=== PATIENT | male | born 1950 | race Caucasian/White ===

== ENCOUNTER 2021-05-06 14:05 | Inpatient (IN) | payer MEDICARE, OTHER ==
[~2021-05-06] VITALS: Ht 182.9 cm; Wt 92.9 kg
[~2021-05-06 14:05] MED LIST: ASPIRIN EC325 MG PO; BUPROPION HCL150 M2 PO; COLACE100 MG PO; GABAPENTIN300 MG PO; LISINOPRIL10 MG PO; NORCO 5-325 TA1 EACH PO; VALTREX1000 MG PO; WELLBUTRIN XL150 MG PO; WELLBUTRIN XL300 MG PO
--- NOTE | 2021-05-06 16:57 | EKG ---
[facility] [address] [facility] [place] [address] Signed Normal sinus rhythm Normal ECG When compared with ECG of 30-JUL-2016 14:16, Nonspecific T wave abnormality no longer evident in Inferior leads Confirmed by SHERIDAN POWERS MD ([id number]) on 05/06/2021 4:56:51 PM Electronically Signed By: SHERIDAN POWERS MD 05/06/21 1657 PATIENT NAME: ESTEFANIA JAY Electrocardiogram DATE OF : 48 PHYSICIAN: SHERIDAN POWERS MD REPORT #: [id number] REPORT IS CONFIDENTIAL AND NOT TO BE RELEASED WITHOUT AUTHORIZATION
--- NOTE | 2021-05-06 17:03 | NUR ---
PT ARRIVED TO FLOOR VIA STRETCHER. 3 PERSON ASSIST SLIDE TO BED. PT WITH NO PAIN UNLESS MOVING. REPORTS RESTING PAIN AT 0/10. LR WITH STRAIGHT TUBING STARTED AND PRE SURGICAL WIPE DOWN COMPLETED. VITALS TAKEN AND STABLE. PRE-OP CHECK LIST DONE.
--- NOTE | 2021-05-06 17:30 | NUR ---
PT OFF FLOOR TO SURGERY.
--- NOTE | 2021-05-06 18:58 | NUR ---
05/06/21 Krystle Phelps-PT ARRIVES TO PACU ON 6 L VIA MASK AND IS RESPONSIVE TO QUESTIONS AND ANSWERS APPROPRIATELY. PT POST-OP RIGHT HIP PINNING AND DRESSING INTACT. SPINAL AT L2 AND PT VERBALIZES NO PAIN/NAUSEA. 185-MONISHA ORIENTATION AND MOBILITY SPECIALIST AT BEDSIDE TO PLACE POST-OP BLOCKS. PT DENIES PAIN/NAUSEA AT THIS TIME. REPORT AND PT HANDOFF GIVEN TO MARCEL ANDRE.
--- NOTE | 2021-05-06 20:31 | NUR ---
Patient awake in bed, alert and oriented, respirations even and non labored. Patient had spinal, Patient reports he has full sensation to left and right lower legs. CMS intact. Right hip dressing CDI. Patient denies pain. Per reports from percussion instructor, patient also had a local block to right hip. Patient's vital signs are stable/afebrile. Cpox intact, sp02 95% on room air.
--- NOTE | 2021-05-06 21:27 | NUR ---
Patient resting in bed, eyes closed, respirations even and non labored. Patient has no distress. CPOX intact, sp02 98% on room air. CMS intact. Scd's intact and working appropriately. Right hip dressing CDI. Close to RN station for monitoring. Bed alarm in place.
--- NOTE | 2021-05-06 23:11 | NUR ---
Patient resting in bed, eyes closed, respirations even and non labored. Patient has no distress noted. Right hip dressing unchanged; CDI. SCD's/abraham hose intact. CMS intact. Dressing to right hip area, pt tolerating well. Patient has no distress. Bed alarm intact.
--- NOTE | 2021-05-07 02:03 | NUR ---
in to assist rn with vitals, reynolds cath emptied at this time
--- NOTE | 2021-05-07 05:40 | NUR ---
Patient slept well through the night with minimal pain reported. Right hip dressing remains CDI. CMS intact. Patient eating/drinking well. Fresh water provided. No needs at this time. Close to RN station.
--- NOTE | 2021-05-07 07:50 | NUR ---
Spoke with Dr. Dominguez and pt is dischargeable. Pt would like to go to [facility] for Rehab. Texted Krystle and faxed chart.
--- NOTE | 2021-05-07 07:52 | OR ---
[facility] [address] [place], [place] [address] Signed DATE OF OPERATION: 05/06/2021 SURGEON: Effie Dominguez MD PREOPERATIVE DIAGNOSIS: Right femoral neck fracture, nondisplaced. POSTOPERATIVE DIAGNOSIS: Right femoral neck fracture, nondisplaced. PROCEDURE PERFORMED: Open reduction and internal fixation of right hip. CAST IRON DRAIN PIPE LAYER: Leann Veliz PA-C. Leann was present and critical for all portions of procedure. ANESTHESIA: Spinal. BLOOD LOSS: 50 mL. IMPLANTS: Three Synthes 7.3 screws. BRIEF HISTORY: Estefania is a 71-year-old gentleman, who fell last night. Initially, he had no complaints, however, over night and this morning, he developed hip pain. He ultimately was transported by EMS to the emergency department, where radiographs revealed the nondisplaced mid cervical neck fracture. Risks and benefits of operative treatment were discussed with him. He was relatively healthy and had been n.p.o. He elected to proceed with operation this evening and he was taken to the operating room where the spinal was placed. He was placed on the fracture table and the left leg was placed in a foot calderon and the right leg was placed in foot traction and the femur was aligned. He had an extremely valgus hip and the fracture was nondisplaced on initial C-arm views, so we elected to proceed with pinning. The hip was prepped and draped in a standard sterile fashion. Using a guide pin, we marked out the incision was made 1 inch long. Through skin and subcutaneous tissue, an IT band. Blunt dissection was taken down to the lateral femur. The 1st guide pin for the three screws was placed inferiorly and Electronically Signed By: EFFIE DOMINGUEZ MD 05/07/21 0752 PATIENT NAME: ESTEFANIA JAY OPERATIVE REPORT DATE OF : 48 REPORT #: [id number] PHYSICIAN: EFFIE DOMINGUEZ MD PCP: PEGGY HERBERT MD REPORT IS CONFIDENTIAL AND NOT TO BE RELEASED WITHOUT AUTHORIZATION [facility] [address] [place], [place] [address] Signed advanced across the femoral neck into the femoral head. Two more guide pins were placed in a . The screws were all measured and three 95 mm screws were used. The screws were drilled over the guide pins and then advanced the screws until they were well-seated against the lateral femur. The final radiograph showed good placement of the screws. Anatomic reduction of the hip and the guide pins were removed. Wounds were copiously irrigated with normal saline. IT band was closed with #1 Vicryl, subcutaneous tissue with 2-0 Monocryl, and the skin with chuck. He was dressed with Allevyn dressing and op site. He was awakened and taken to the recovery room in satisfactory condition. All sponge, needle, and instrument counts were correct. Effie Dominguez MD BA/JAMEELL /[id number] Copies: ~ Electronically Signed By: EFFIE DOMINGUEZ MD 05/07/21 0752 PATIENT NAME: ESTEFANIA JAY OPERATIVE REPORT DATE OF : 48 REPORT #: [id number] PHYSICIAN: EFFIE DOMINGUEZ MD PCP: PEGGY HERBERT MD REPORT IS CONFIDENTIAL AND NOT TO BE RELEASED WITHOUT AUTHORIZATION
--- NOTE | 2021-05-07 08:00 | NUR ---
REPORT RECEIVED FROM NIGHT RN AND PT. CARE RESUMED. PT. IS ALERT AND ORIENTED. HE DENIES PAIN, NUMBNESS OR TINGLING. RT. SURGICAL SITE DRESSING IS CDI. LUNGS CLEAR THROUGHOUT ON ROOM AIR. DISCUSSED POC AND MEDS. HATHAWAY DRAINING DARK YELLOW, CLOUDY URINE WITH SEDIMENT. PT. LEFT RESTING WITH CALL LIGHT IN REACH.
--- NOTE | 2021-05-07 09:54 | NUR ---
IV antibiotic completed. IV converted to SL. PT in room working with patient at this time. Denies other needs.
--- NOTE | 2021-05-07 12:30 | NUR ---
Pt lives at [facility]. He moved in January. Pt does not use any DME. Uses food stamps and receives a food box every 2 weeks from [employer]. Pt is aware he will be toe touch wt bruno medley and would like to go the [facility] [place].
--- NOTE | 2021-05-07 12:46 | NUR ---
ROUNDING ON PT. HE IS SLEEPING IN BED AT THIS TIME. BREATHING UNLABORED AND EVEN.
--- NOTE | 2021-05-07 13:00 | NUR ---
Pt very concerned about losing [facility] apartment and also states he has an eval with [facility]. Called and spoke with Lacy at [facility] and she states they are aware he is in the hospital as he as called them. They have his cell number and will contact him when he needs his eval.
[2021-05-07] MEDS ORDERED: GABAPENTIN400 MG PO (13:04)
--- NOTE | 2021-05-07 15:38 | NUR ---
Textbrunilda Dalton and asked if she has heard from the state at this time. Awaiting if they are able to accept this pt. Pt's first choice is to go to [facility] and remain in [place], second choice is [facility] in [place]. He prefers to not go to [facility] or [place]. Refuses placement to farther areas.
[2021-05-07] MEDS ORDERED: TERBINAFINE HC250 MG PO (16:08)
[2021-05-07] MEDS ORDERED: TAMSULOSIN HCL0.4 MG PO (16:08)
--- NOTE | 2021-05-07 16:20 | NUR ---
MED REC COMPLETE
--- NOTE | 2021-05-07 19:26 | NUR ---
RECEIVED REPORT FROM THAI MOORE. pt RESTING IN BED. NO REQUESTS AT THIS TIME. DENIES PAIN. WHITEBOARD UPDATED. CALL LIGHT WITHIN REACH.
--- NOTE | 2021-05-07 21:40 | NUR ---
IN TO GET VITALS, HATHAWAY EMPTIED AT THIS TIME
--- NOTE | 2021-05-07 22:21 | NUR ---
MEDICATIONS PER MARS GIVEN. PT STATES NO PAIN. DRANK WATER WITH MEDICATIONS, WASH CLOTH PROVIDED. CELL PHONE FOUND AND PLACED ON OVERBED TABLE. HEEL PROTECTORS, SCD'S IN PLACE.
--- NOTE | 2021-05-07 22:40 | NUR ---
IN TO DO ASSESSMENT. pt AWAKE AND ALERT. NO CHANGES TO DRESSING. CLEAN DRY AND INTACT. ICE TO AREA PER ORDERS. AES, SCDS, AND HEEL PROTECTORS IN PLACE. pt DENIES PAIN. HATHAWAY CARE DONE. CALL LIGHT WITHIN REACH.
--- NOTE | 2021-05-08 00:31 | NUR ---
ROUNDED ON pt. RESTING IN BED WITH EYES CLOSED, SNORING. CALL LIGHT WITHIN REACH.
--- NOTE | 2021-05-08 02:30 | NUR ---
IN TO GIVE MEDICATIONS. pt AWAKE IN BED, WORRIED ABOUT PAYING RENT. PER pt SISTER HAS PLAN TO PAY. URINE ORANGE. OUTPUT ON THE LOW SIDE. ENCOURAGED TO DRINK. DENIES PAY. DRESSING REMAINS CDI. CALL LIGHT WITHIN REACH.
--- NOTE | 2021-05-08 04:23 | NUR ---
ROUNDED ON pt. SNORING. RESPIRATIONS REGULAR. CALL LIGHT WITHIN REACH.
--- NOTE | 2021-05-08 06:40 | NUR ---
IN TO DO VITALS AND MED. pt AWAKE IN BED. HAS BEEN DRINKING SOME. ENCOURAGED TO DRINK MORE. DENIES PAIN. ACTICOAT CLEAN, DRY AND INTACT. LINENS CHANGED DUE TO SPILL. pt ASSISTED WITH TURNING, DENIED PAIN. MEDICATION GIVEN (SEE MAR). NO REQUESTS. RESTING IN BED. CALL LIGHT WITHIN REACH.
--- NOTE | 2021-05-08 06:59 | NUR ---
UPDATED MD ON LOW URINE OUTPUT. ORDERED TO "ENCOURAGE PO".
--- NOTE | 2021-05-08 08:00 | NUR ---
Contact Krystle at [facility] and asked if they can accept this pt. She has not heard from the state. Let her know I will need to check with [facility] in [place] as I am unable to hold pts. Face sheet, progress notes, surgery report, ER report, Medlist, covid test faxed to Marbella at [facility] in [place]. This is pts second choice for SNF.
--- NOTE | 2021-05-08 08:30 | NUR ---
REPORT RECEIVED FROM NIGHT RN AND PT. CARE RESUMED. PT. IS ALERT AND ORIENTED. 1PA WITH FWW TO CHAIR WITH TOE TOUCH. PT. TOLERATED WELL AND DENIES PAIN. RT. HIP SURG. SITE IS CDI. LUNGS CLEAR THROUGHOUT. IV SITE WNL AND FLUSHES WELL. PT. ENCOURAGED TO INCREASE PO INTAKE AND AGREEABLE TO IT. HATHAWAY PATENT AND DRAINING ORANGE URINE WITH CHUNKY SEDIMENT. DISCUSSED POC, POSSIBLE DISCHARGE AND MEDS. LEFT RESTING WITH CALL LIGHT IN REACH.
--- NOTE | 2021-05-08 09:44 | NUR ---
Received call from Deja at [facility]. They will accept this pt today. Require a second covid test, a would like his covid vaccination card, they will pick him up this afternoon. She will call me with a time. Texted Dr. Dominguez the above and requested he enter not showing pt left prior to 3 midnight stay due to need of beds for covid pts. Spoke with pt and he was vaccinated in November and December but does not have his cards with him. covid test ordered arvin.
--- NOTE | 2021-05-08 10:00 | NUR ---
Orders for SNF printed, PASSR completed. Dr. Dominguez completed and orders, PASSR, Rx faxed to [facility].
[2021-05-08] MEDS ORDERED: HYDROCODON-ACE1 EA11 PO (10:46)
--- NOTE | 2021-05-08 11:00 | NUR ---
Received call from Deja and they will pick Timothy up at 1400 and transport per wc with leg rest.
--- NOTE | 2021-05-08 11:20 | NUR ---
ROUNDING ON PT. PT. UP IN THE CHAIR AND DENIES PAIN AT THIS TIME. HE IS ANXIOUS ABOUT GOING FOR REHAB AND COMMUNICATION WITH HIS SISTER. PT. REASSURED THAT FACILITY WITH HAVE CONTACT INFORMATION FOR HIS SISTER.
--- NOTE | 2021-05-08 11:44 | NUR ---
HATHAWAY REMOVED WITH 9ML SALINE REMOVED FROM BALLOON AND CATH INTACT. CATHETER EMPTIED OF 100ML CLOUDY ORANGE URINE. PT. TOLERATED WELL.
--- NOTE | 2021-05-08 14:31 | NUR ---
REPORT GIVEN TO DEE TOLBERT [facility]. PT. LEFT BY WHEELCHAIR VAN WITH ALL BELONGINGS AND DISCHARGE PAPERWORK.
--- NOTE | 2021-05-11 11:24 | DS ---
[facility] [address] [place], [place] [address] Signed ADMISSION DATE: 05/06/2021 DISCHARGE DATE: 05/08/2021 ADMISSION DIAGNOSIS: Right hip fracture. DISCHARGE DIAGNOSIS: Right hip fracture. PROCEDURE PERFORMED: Right hip percutaneous pinning. BRIEF HISTORY: Estefania is a 71-year-old gentleman who fell the night before his admission and had hip pain that worsened. X-rays in the ER showed a fracture of the femoral neck, it was nondisplaced. He was taken to the operating room immediately, underwent pinning with an uneventful recovery. He has done well. He does live in his own apartment, has no friends or family to help and take care of him. He will need senior living facility for continued inpatient treatment due to toe-touch weightbearing and need for physical therapy for gait training and balance. He is being discharged stay secondary to need for COVID inpatient treatment. He will follow up with me in 7-10 days. Effie Dominguez MD BA/DE /[id number] Copies: ~ Electronically Signed By: EFFIE DOMINGUEZ MD 05/11/21 1124 PATIENT NAME: ESTEFANIA JAY DISCHARGE SUMMARY DATE OF : 48 REPORT #: [id number] PHYSICIAN: EFFIE DOMINGUEZ MD PCP: PEGGY HERBERT MD REPORT IS CONFIDENTIAL AND NOT TO BE RELEASED WITHOUT AUTHORIZATION
== END 2021-05-08 14:15 | DRG 481 ==
LOC: ED 14:05 → MS 16:34
PROVIDERS: ADMIT Specialist; ATTEND Specialist
PROC: 0QS604Z Reposition Right Upper Femur with Internal Fixation Device, Open Approach (ICD-10-PCS; principal; 2021-05-06 17:22)
DX: S72.001A Fracture of unspecified part of neck of right femur, initial encounter for closed fracture (principal); N39.0 Urinary tract infection, site not specified; G89.18 Other acute postprocedural pain; F32.9 Major depressive disorder, single episode, unspecified; Z20.822 Contact with and (suspected) exposure to COVID-19; I10 Essential (primary) hypertension; W18.30XA Fall on same level, unspecified, initial encounter; Z98.890 Other specified postprocedural states; Z79.82 Long term (current) use of aspirin; Z79.899 Other long term (current) drug therapy
CPT/HCPCS: 01210; 51702; 64447; 71045; 73502; 76942; 80048; 80053; 81001; 85025; 87088; 93005; 93010; 94760; 94762; 97110; 97116; 97162; 99285-25; C9803; J0690; J0696; J1100; J1885; J2001; J2704; J2795; J7040; U0003

== ENCOUNTER 2021-11-27 14:12 | Emergency (ER) | payer OTHER, MEDICARE ==
[~2021-11-27] VITALS: Ht 182.9 cm; Wt 92.5 kg
[~2021-11-27 14:12] MED LIST changes: +GABAPENTIN400 MG PO; +HYDROCODON-ACE1 EA11 PO; +TAMSULOSIN HCL0.4 MG PO; +TERBINAFINE HC250 MG PO
--- OUTSIDE RECORDS SUMMARY | 2021-11-27 14:14 | XMS ---
PreManage Notification: ESTEFANIA JAY Security Deckhand Events No recent Security Events currently on file CRITERIA MET - POL CARE PROVIDERS KEON PEGGY [facility] 05/07/2021-Current PHONE: [phone] [facility] has no Care Guidelines for this patient. Care History Medical/Surgical 05/07/2021 [facility] - Patient is currently established with [facility]. If patient is seen in the ED during business hours. Please contact CHWs at [facility]. Care Recommendation: If this patient has had 5 or more Emergency Department visits in the last 12 months.\T\nbsp; Patient will require education on the scope and purpose of the ED as an acute care provider not a Primary Care Provider and should not be utilized for chronic conditions.\T\nbsp; These are guidelines and the provider should exercise clinical judgment when providing care. E.D. VISIT COUNT (12 MO.) 2 [facility] TOTAL 2 NOTE: Visits indicate total known visits. ED/UCC VISIT TRACKING (12 MO.) 11/27/2021 14:13 [facility] TYPE: Emergency COMPLAINT: - R THUMB INJURY 05/06/2021 14:06 [facility] TYPE: Emergency COMPLAINT: - FALL INPATIENT VISIT TRACKING (12 MO.) 05/06/2021 16:[address] [facility] TYPE: Medical Surgical COMPLAINT: - R HIP FRACTURE DIAGNOSES: - Major depressive disorder, single episode, unspecified - Other health safety and environment manager (current) drug therapy - Urinary tract infection, site not specified - Fall on same level, unspecified, initial encounter - Urinary tract infection, site not specified - Essential (primary) hypertension - Essential (primary) hypertension - Other specified postprocedural states - group home (current) use of aspirin - Other health safety and environment manager (current) drug therapy - Fall on same level, unspecified, initial encounter - group home (current) use of aspirin - Fracture of unspecified part of neck of right femur, initial encounter for closed fracture - Other acute postprocedural pain - Other specified postprocedural states - Major depressive disorder, single episode, unspecified [email or web address]
[2021-11-27] MEDS ORDERED: GABAPENTIN400 MG PO (14:29)
[2021-11-27] MEDS ORDERED: BUPROPION XL300 MG PO (14:30)
[2021-11-27] MEDS ORDERED: BUPROPION XL150 MG PO (14:30)
[2021-11-27] MEDS ORDERED: CEPHALEXIN500 M1 PO (15:06)
== END 2021-11-27 15:37 | disposition home or self-care (01) ==
LOC: ED 14:12
DX: S62.521B Displaced fracture of distal phalanx of right thumb, initial encounter for open fracture (principal); I10 Essential (primary) hypertension; Z79.899 Other long term (current) drug therapy; Z79.82 Long term (current) use of aspirin; W22.8XXA Striking against or struck by other objects, initial encounter
CPT/HCPCS: 73140; 99283-25; A9270

== ENCOUNTER 2025-07-28 16:09 | Emergency (ER) | payer OTHER, MEDICARE ==
[~2025-07-28] VITALS: Ht 182.9 cm; Wt 93.0 kg
[~2025-07-28 16:09] MED LIST changes: +BUPROPION XL150 MG PO; +BUPROPION XL300 MG PO; +CEPHALEXIN500 M1 PO; +VITAMIN D325 MCG PO
[2025-07-28 23:30] VITALS: BP 132/89
== END 2025-07-28 23:30 | disposition home or self-care (01) ==
LOC: ED 16:09
DX: S21.111A Laceration without foreign body of right front wall of thorax without penetration into thoracic cavity, initial encounter (principal); I10 Essential (primary) hypertension; W22.8XXA Striking against or struck by other objects, initial encounter; Z79.899 Other long term (current) drug therapy
CPT/HCPCS: 99282